=== PATIENT | female | born 2000 | race Caucasian/White ===

== ENCOUNTER 2022-06-11 22:23 | Emergency (ER) | payer OTHER ==
[~2022-06-11] VITALS: Ht 162.6 cm; Wt 59.0 kg
[2022-06-11 22:25] VITALS: BP 120/67
--- NOTE | 2022-06-11 23:00 | NUR ---
PT TAKEN TO BED 10
--- NOTE | 2022-06-11 23:07 | NUR ---
Dr. Collins examining patient.
[2022-06-11] MEDS ORDERED: IBUP-2213 PO (23:10)
--- NOTE | 2022-06-11 23:15 | NUR ---
pt seen and assesed by ermd. no nursing interventions. Written and verbal after care instructions given and explained. Patient alert, oriented and verbalized understanding of instructions. Ambulatory with steady gait. All questions addressed prior to discharge. ID band removed. Patient advised to follow up with PMD. Rx of ibuprofen given. Patient educated on indication of medication including possible reaction and side effects. Opportunity to ask questions provided and answered.
== END 2022-06-11 23:15 | disposition home or self-care (01) ==
LOC: MED 22:23
DX: S01.81XA Laceration without foreign body of other part of head, initial encounter (principal); X58.XXXA Exposure to other specified factors, initial encounter; Y93.89 Activity, other specified; Y92.89 Other specified places as the place of occurrence of the external cause; Y99.8 Other external cause status
CPT/HCPCS: 99282